=== PATIENT | male | born 2005 ===

== ENCOUNTER 2023-09-04 12:00 | Outpatient (RCR) | payer OTHER, SELFPAY | END 2023-11-24 14:37 | disposition home or self-care (01) | DX: M25.562 Pain in left knee (principal); M76.892 Other specified enthesopathies of left lower limb, excluding foot; M62.81 Muscle weakness (generalized); M25.552 Pain in left hip; Z51.89 Encounter for other specified aftercare | CPT/HCPCS: 97110; 97140; 97161 ==